=== PATIENT | female | born 1970 | race Caucasian/White ===

== ENCOUNTER 2023-04-27 12:39 | Emergency (ER) | payer OTHER ==
[2023-04-27] MEDS ORDERED: Lidocaine 1% PF 5 ML VIAL ONE (12:56)
== END 2023-04-27 14:30 | disposition home or self-care (01) ==
LOC: MADERS 12:39
DX: S62.623A Displaced fracture of middle phalanx of left middle finger, initial encounter for closed fracture (principal); X50.1XXA Overexertion from prolonged static or awkward postures, initial encounter
CPT/HCPCS: 26725